=== PATIENT | male | born 1990 | race Caucasian/White ===

== ENCOUNTER 2024-09-11 19:17 | Emergency (ER) | payer OTHER ==
[2024-09-11 19:49] LABS: Absolute Neutrophil Ct (ANC) 4.92 x10^3/uL (1.78-5.38); Basophil (Absolute #) 0.08 x10^3/uL (0.01-0.08); Eosinophil % 4.7 % (0.8-7.0); Eosinophil (Absolute #) 0.38 x10^3/uL (0.04-0.54); Hematocrit 36.9 % (40.1-51.0); Hemoglobin 11.9 g/dL (13.7-17.5); IMMATURE GRAN # 0.03 x10^3u/L (0.001-0.031); IMMATURE GRAN % 0.4 % (0.001-0.429); Lymphocyte (Absolute #) 2.07 x10^3/uL (1.32-3.57); Lymphocytes % 25.7 % (21.8-53.1); Mean Cell Volume 83.5 fL (79.0-92.2); Mean Corpuscular Hemoglobin 26.9 pg (25.7-32.2); Mean Corpuscular Hgb Concent. 32.2 g/dL (32.3-36.5); Mean Platelet Volume 8.9 fL (9.4-12.4); Monocyte (Absolute #) 0.59 x10^3/uL (0.30-0.82); Monocytes % 7.3 % (5.3-12.2); Neutrophil % 60.9 % (34.0-67.9); Platelet Count 449 x10^3/uL (163-337); Red Blood Count 4.42 x10^6/uL (4.63-6.08); Red Cell Distribution Width 14.4 % (11.6-14.4); White Blood Count 8.1 x10^3/uL (4.23-9.07)
[2024-09-11] MEDS ORDERED: Zofran 4 MG/2 ML VIAL ONE (19:52)
[2024-09-11] MEDS ORDERED: Hydromorphone 1 mg/ml Injection ONE ×2 (19:53→21:48)
[2024-09-11] MEDS ORDERED: Sodium Chloride 0.9% 1000 ML 1,000 ML ONE (19:53)
[2024-09-11 19:54] VITALS: RESP 18; TEMP 97.8
--- NOTE | 2024-09-11 19:54 | ERPHSYRPT ---
- History of Present Illness Time Seen by Provider: 09/11/24 19:40 Historian: patient Exam Limitations: no limitations Physician History: This is a 34-year-old white male patient who is new to this town and has a history of Crohn's disease. He feels as though he is having a "flareup". He is not on any medications since he moved to town here. He has not seen a gastro enterologist and does not have a primary care provider. Patient has no known drug allergies and he is not on any medications. Patient states that 2 days ago the pain was in his left upper quadrant and is still present there. It is a sharp achiness. His typical Crohn's flareup pain is in the infraumbilical midline. He states it is now there as well. Patient has a ride home from work. He states he has had 2 episodes of small emesis. He is nauseated. He also passed some blood rectally. He denies chest pain. He denies shortness of breath. Timing/Duration: day(s) (2) Activities at Onset: none Quality: aching, sharpness Abdominal Pain Onset Location: LUQ, periumbilical Pain Radiation: no radiation (For umbilical midline) Severity of Pain-Max: moderate Severity of Pain-Current: moderate Modifying Factors: Improves With: vomiting (Twice, small amounts) Associated Symptoms: loss of appetite, nausea, vomiting, other (Small amount of blood passed rectally) Previous symptoms: same symptoms as today, no recent treatment Allergies/Adverse Reactions: No Known Drug Allergies Allergy (Unverified 09/11/24 19:23) Travel Risk - International Travel Have you traveled outside of the country in past 3 weeks: No - Emerging Infectious Disease Are you exhibiting symptoms associated with any current EIDs: No - Review of Systems Constitutional: No Symptoms Eyes: No Symptoms Ears, Nose, & Throat: No Symptoms Respiratory: No Symptoms Cardiac: No Symptoms Abdominal/Gastrointestinal: Abdominal Pain, Nausea, Vomiting, Hematochezia (Small amount), Appetite Changes Genitourinary Symptoms: No Symptoms Musculoskeletal: No Symptoms Skin: No Symptoms Neurological: No Symptoms Psychological: No Symptoms Endocrine: No Symptoms Hematologic/Lymphatic: No Symptoms Immunological/Allergic: No Symptoms All Other Systems: Reviewed and Negative - Past Medical History Pertinent Past Medical History: Yes - Past Surgical History Past Surgical History: Yes - Nursing Vital Signs Nursing Vital Signs: Initial Vital Signs Temperature 97.8 F 09/11/24 19:25 Pulse Rate 120 H 09/11/24 19:25 Respiratory Rate 18 09/11/24 19:25 Blood Pressure 133/81 09/11/24 19:25 O2 Sat by Pulse Oximetry 97 09/11/24 19:25 Pain Scale Pain Intensity 9 - Physical Exam General Appearance: no apparent distress, alert, anxiety Eye Exam: PERRL/EOMI, eyes nml inspection Ears, Nose, Throat Exam: normal ENT inspection, moist mucous membranes Neck Exam: normal inspection, non-tender, supple, full range of motion Respiratory Exam: normal breath sounds, lungs clear, airway intact, No chest tenderness, No respiratory distress Cardiovascular Exam: regular rate/rhythm, normal heart sounds, normal peripheral pulses Gastrointestinal/Abdomen Exam: soft, normal bowel sounds, tenderness (Left upper quadrant and infraumbilical midline to palpation), guarding (Left upper quadrant and in from Velcro midline to palpation), No rebound Rectal Exam: not done Back Exam: normal inspection, normal range of motion, No CVA tenderness, No vertebral tenderness Extremity Exam: normal inspection, normal range of motion, pelvis stable Neurologic Exam: alert, oriented x 3, cooperative, hobber II-XII nml as tested, normal mood/affect, nml cerebellar function, nml station & gait, sensation nml Skin Exam: normal color, warm, dry Lymphatic Exam: No adenopathy SpO2 Interpretation: normal O2 Delivery: Room Air - Course Nursing assessment & vital signs reviewed: Yes Ordered Tests: Active Orders 24 hr Category Date Time Status IV Insertion STAT Care 09/11/24 19:41 Active ABDOMEN AND PELVIS W/0 CONTRAS [CT] Stat Exams 09/11/24 19:41 Taken AMYLASE Stat Lab 09/11/24 19:25 Completed CBC W DIFF Stat Lab 09/11/24 19:25 Completed CMP Stat Lab 09/11/24 19:25 Completed LIPASE Stat Lab 09/11/24 19:25 Completed UA W/RFX UR CULTURE Stat Lab 09/11/24 20:50 Completed Medication Summary Discontinued Medications Generic Name Dose Route Start Last Admin Trade Name Freq PRN Reason Stop Dose Admin Methylprednisolone Sodium 0 mg 09/11/24 21:14 Succinate 125 mg/ Sterile IV 09/11/24 21:15 Water 2 ml STAT ONE Hydromorphone HCl 1 mg 09/11/24 19:41 09/11/24 20:04 Hydromorphone 1 Mg/1ml Inj IV 09/11/24 19:42 1 mg STAT ONE Administration Hydromorphone HCl Confirm 09/11/24 19:53 Hydromorphone 1 Mg/1ml Inj Administered 09/11/24 19:54 Dose 1 mg .ROUTE .STK-MED ONE Hydromorphone HCl 1 mg 09/11/24 21:14 Hydromorphone 1 Mg/1ml Inj IV 09/11/24 21:15 STAT ONE Sodium Chloride 1,000 mls @ 999 mls/hr 09/11/24 19:41 09/11/24 21:07 Sodium Chloride 0.9% 1000 Ml IV 09/11/24 20:41 Infused .Q1H1M STA Infusion Sodium Chloride Confirm 09/11/24 19:53 Sodium Chloride 0.9% 1000 Ml Administered 09/11/24 19:54 Dose 1,000 mls @ ud .ROUTE .STK-MED ONE Ondansetron HCl 4 mg 09/11/24 19:41 09/11/24 20:04 Ondansetron Hcl 4 Mg/2 Ml Vial IV 09/11/24 19:42 4 mg STAT ONE Administration Ondansetron HCl Confirm 09/11/24 19:52 Ondansetron Hcl 4 Mg/2 Ml Vial Administered 09/11/24 19:53 Dose 4 mg .ROUTE .STK-MED ONE Lab/Rad Data: Laboratory Result Diagrams 09/11/24 19:25 09/11/24 19:25 Laboratory Results 09/11/24 09/11/24 09/11/24 Range/Units 20:50 19:25 19:25 WBC 8.1 (4.23-9.07) x10^3/uL RBC 4.42 L (4.63-6.08) x10^6/uL Hgb 11.9 L (13.7-17.5) g/dL Hct 36.9 L (40.1-51.0) % MCV 83.5 (79.0-92.2) fL MCH 26.9 (25.7-32.2) pg MCHC 32.2 L (32.3-36.5) g/dL RDW 14.4 (11.6-14.4) % Plt Count 449 H (163-337) x10^3/uL MPV 8.9 L (9.4-12.4) fL Gran % 60.9 (34.0-67.9) % Immature Gran % (Auto) 0.4 (0.001-0.429) % Nucleat RBC Rel Count 0.0 (0.00-0.2) % Eos # (Auto) 0.38 (0.04-0.54) x10^3/uL Immature Gran # (Auto) 0.03 (0.001-0.031) x10^3u/L Absolute Lymphs (auto) 2.07 (1.32-3.57) x10^3/uL Absolute Monos (auto) 0.59 (0.30-0.82) x10^3/uL Absolute Nucleated RBC 0.00 (0.00-0.012) x10^3u/L Lymphocytes % 25.7 (21.8-53.1) % Monocytes % 7.3 (5.3-12.2) % Eosinophils % 4.7 (0.8-7.0) % Basophils % 1.0 (0.2-1.2) % Absolute Granulocytes 4.92 (1.78-5.38) x10^3/uL Basophils # 0.08 (0.01-0.08) x10^3/uL Sodium 139 (135-145) mmol/L Potassium 3.8 (3.5-5.1) mmol/L Chloride 106 (98-107) mmol/L Carbon Dioxide 24 (22-30) mmol/L Anion Gap 13.1 (5-15) MEQ/L BUN 13 (9-20) mg/dL Creatinine 0.88 (0.66-1.25) mg/dL Estimated GFR 115.7 ML/MIN Glucose 156 H (74-106) mg/dL Calcium 8.8 (8.4-10.2) mg/dL Total Bilirubin 0.20 (0.2-1.3) mg/dL AST 30 (17-59) U/L ALT 23 (0-50) U/L Alkaline Phosphatase 104 (38-126) U/L Serum Total Protein 7.3 (6.3-8.2) g/dL Albumin 4.2 (3.5-5.0) g/dL Amylase 67 (30-110) U/L Lipase 102 (23-300) U/L Urine Color Yellow (Yellow) Urine Appearance Clear (Clear) Urine pH 5.5 (4.6-8.0) Ur Specific [place] 1.025 (1.005-1.030) Urine Protein Negative (Negative) Urine Glucose (UA) Negative (Negative) mg/dL Urine Ketones Trace A (Negative) Urine Blood Negative (Negative) Urine Nitrite Negative (Negative) Urine Bilirubin Negative (Negative) Urine Urobilinogen 1.0 A (0.2) mg/dL Ur Leukocyte Esterase Negative (Negative) U Hyaline Cast (Auto) NONE SEEN (0-2) /LPF Urine Microscopic RBC 0-2 (0-5) /HPF Urine Microscopic WBC 0-2 (0-5) /HPF Ur Epithelial Cells None Seen (None Seen) /HPF Urine Bacteria None Seen (None Seen) /HPF Urine Culture Reflexed NO (NO) - Progress Progress: improved, pain not gone completely Progress Note: 09/11/24 19:52 My medical decision making of the assignment of moderate complexity to this patient's medical issue today is based on review of the patient's past medical history, review of the patient's medication list, reviewed patient drug allergy list, history present illness and physical findings on examination. The workup in this patient includes placement of intravenous line, infusion of normal saline solution, infusion of Zofran intravenously, infusion of Dilaudid intravenously, CBC, CMP, amylase, lipase, urinalysis, CT scan of the abdomen pelvis without contrast. Differential diagnosis includes was not limited to pancreatitis, colitis, diverticulitis, Crohn's disease exacerbation/flareup 09/11/24 21:15 I interpreted the patient's laboratory data results. Based on the laboratory data results, there are no acute, emergent medical issues. The CT scan of the abdomen pelvis without contrast was interpreted by the radiologist and I reviewed the impression. Impression states mild colitis descending colon without complications. Remaining CT scan of the abdomen pelvis is negative. Counseled pt/family regarding: lab results, diagnosis, need for follow-up, rad results Medical Desision Making - Diagnostic Testing Diagnostic test were ordered, analyzed, and reviewed by me: Yes Radiological Interpretation: Reviewed by me, Teleradiologist Report - Risk of complications The pt has a mod risk of morbidity or mortality based on: Need for prescription drug management - Departure Departure Disposition: Home Clinical Impression: Colitis Condition: Stable Critical Care Time: No Additional Instructions: Drink plenty of clear liquids. Do not advance your diet until you have no abdominal pain then advance your diet slowly. Avoid fatty greasy spicy foods. Take your antibiotics as prescribed. Call your primary care provider and/or caustic purification operator tomorrow morning, 09/12/2024, to make arrangements for follow-up appointment to be seen in the next 5 to 7 days. Prescriptions: Hydrocodone/APAP 5/325 [[place] 5/325 mg] 1 each PO Q8H PRN PRN #6 tablet MDD 3 PRN Reason: Pain Ciprofloxacin [Cipro 500 MG] 500 mg PO BID #14 tablet Metronidazole 500 mg [Flagyl 500 MG] 500 mg PO TID #21 tablet
[2024-09-11 20:02] LABS: ALBUMIN 4.2 g/dL (3.5-5.0); ANION GAP 13.1 MEQ/L (5-15); BILIRUBIN,TOTAL 0.2 mg/dL (0.2-1.3); Calcium 8.8 mg/dL (8.4-10.2); Creatinine 1 0.88 mg/dL (0.66-1.25); EST GLOMERULAR FILTRATION RATE 115.7 ML/MIN; Potassium 3.8 mmol/L (3.5-5.1); Total Protein 7.3 g/dL (6.3-8.2)
[2024-09-11] MEDS: Zofran 4 MG/2 ML VIAL IV ONE (20:04)
[2024-09-11] MEDS: Sodium Chloride 0.9% 1000 ML 1,000 ML IV STA (20:04)
[2024-09-11] MEDS: Hydromorphone 1 mg/ml Injection IV ONE ×2 (20:04→21:54)
[2024-09-11 21:06] LABS: Appearance Clear (Clear); Bacteria None Seen /HPF (None Seen); Bilirubin Negative (Negative); Blood Negative (Negative); Epithelial Cells None Seen /HPF (None Seen); Glucose, Urine Negative (Negative); Hyaline Casts NONE SEEN /LPF (0-2); Ketones Trace (Negative); Leukocyte Esterase Negative (Negative); Nitrite Negative (Negative); Ph 5.5 (4.6-8.0); Protein,Urine Dip Negative (Negative); RBC 0-2 /HPF (0-5); Specific Gravity 1.025 (1.005-1.030); WBC 0-2 /HPF (0-5)
[2024-09-11] MEDS ORDERED: solu-MEDROL ONE (21:48)
[2024-09-11] MEDS ORDERED: Levofloxacin 500 MG Tablet ONE (21:48)
[2024-09-11] MEDS ORDERED: Sterile H2O 10 ml IJ ONE (21:48)
[2024-09-11] MEDS ORDERED: NORCO 5/325 MG ONE (21:49)
[2024-09-11] MEDS ORDERED: Flagyl 500 MG ONE (21:49)
[2024-09-11] MEDS: Levofloxacin 500 MG Tablet PO ONE (21:54)
[2024-09-11] MEDS: solu-MEDROL 125 MG, Sterile H2O 10 ml 2 ML IV ONE (21:54)
[2024-09-11] MEDS: Flagyl 500 MG PO ONE (21:54)
[2024-09-11] MEDS: NORCO 5/325 MG PO ONE (21:54)
[2024-09-11 22:46] VITALS: BP 119/78; PULSE 93; O2SAT 97
--- NOTE | 2024-09-12 08:15 | XRAY ---
Indication: Left upper quadrant/infraumbilical abdominal pain. History Crohn's disease. Multiple contiguous axial images obtained through the abdomen and pelvis without contrast. Comparison: None Lung bases clear. Heart not enlarged. Stomach distended with food/fluid. Noncontrasted stomach and bowel loops appear nonobstructed. Normal appendix. Descending colon demonstrates mild circumferential wall thickening with pericolonic stranding favoring colitis. No free fluid/air. Remaining liver, gallbladder, pancreas, spleen, adrenal glands, kidneys, ureters, bladder, and aorta are unremarkable for noncontrast exam. Osseous structures intact. Impression: Mild non-complicated descending colitis.
== END 2024-09-11 22:47 | disposition home or self-care (01) ==
LOC: ED 19:17
DX: K52.9 Noninfective gastroenteritis and colitis, unspecified (principal); R10.12 Left upper quadrant pain; R10.33 Periumbilical pain; R11.2 Nausea with vomiting, unspecified; K92.1 Melena
CPT/HCPCS: 36415; 74176; 80053; 81001; 82150; 83690; 85025; 96360; 96374; 96375; 96376; 99284; J1171; J2405; J2919; A9270-GY

== ENCOUNTER 2024-10-05 17:56 | Emergency (ER) | payer OTHER ==
[2024-10-05 19:13] VITALS: TEMP 97.7
[2024-10-05] MEDS ORDERED: MORPHINE SULFATE 4 MG INJ ONE (19:41)
[2024-10-05] MEDS ORDERED: Sodium Chloride 0.9% 1000 ML 1,000 ML ONE (19:41)
[2024-10-05] MEDS ORDERED: Sterile H2O 10 ml IJ ONE (19:41)
[2024-10-05] MEDS ORDERED: Zofran 4 MG/2 ML VIAL ONE (19:41)
[2024-10-05] MEDS ORDERED: solu-MEDROL ONE (19:41)
[2024-10-05] MEDS: Sodium Chloride 0.9% 1000 ML 1,000 ML IV STA (19:43)
[2024-10-05] MEDS: solu-MEDROL 125 MG, Sterile H2O 10 ml 2 ML IV ONE (19:43)
[2024-10-05] MEDS: MORPHINE SULFATE 4 MG INJ IV ONE (19:43)
[2024-10-05] MEDS: Zofran 4 MG/2 ML VIAL IV ONE (19:43)
[2024-10-05 20:00] LABS: Hematocrit 37.5 % (40.1-51.0); Hemoglobin 11.7 g/dL (13.7-17.5); Mean Cell Volume 84.1 fL (79.0-92.2); Mean Corpuscular Hemoglobin 26.2 pg (25.7-32.2); Mean Corpuscular Hgb Concent. 31.2 g/dL (32.3-36.5); Mean Platelet Volume 8.8 fL (9.4-12.4); Platelet Count 416 x10^3/uL (163-337); Red Blood Count 4.46 x10^6/uL (4.63-6.08); Red Cell Distribution Width 14.9 % (11.6-14.4); White Blood Count 9.9 x10^3/uL (4.23-9.07)
[2024-10-05 20:04] LABS: Appearance Clear (Clear); Bacteria None Seen /HPF (None Seen); Bilirubin Negative (Negative); Blood Negative (Negative); Epithelial Cells None Seen /HPF (None Seen); Glucose, Urine Negative (Negative); Hyaline Casts NONE SEEN /LPF (0-2); Ketones Negative (Negative); Leukocyte Esterase Negative (Negative); Nitrite Negative (Negative); Ph 6.5 (4.6-8.0); Protein,Urine Dip Negative (Negative); RBC 0-2 /HPF (0-5); Specific Gravity <=1.005 (1.005-1.030); Urobilinogen 0.2 mg/dL (0.2); WBC 0-2 /HPF (0-5)
[2024-10-05 20:14] LABS: ALBUMIN 4.4 g/dL (3.5-5.0); ANION GAP 10.8 MEQ/L (5-15); BILIRUBIN,TOTAL 0.2 mg/dL (0.2-1.3); Calcium 9.3 mg/dL (8.4-10.2); Creatinine 1 0.85 mg/dL (0.66-1.25); EST GLOMERULAR FILTRATION RATE 116.9 ML/MIN; Potassium 3.9 mmol/L (3.5-5.1); Total Protein 7.8 g/dL (6.3-8.2)
[2024-10-05 20:16] VITALS: O2SAT 97
--- NOTE | 2024-10-05 20:30 | ERPHSYRPT ---
- History of Present Illness Time Seen by Provider: 10/05/24 18:33 Historian: patient Exam Limitations: no limitations Patient Subjective Stated Complaint: c/o abdominal pain Triage Nursing Assessment: patient brought self to ED with c/o abdominal pain that has been going on for the past 2-3 days. patient states he has had some diarrhea and nausea, denies vomiting, history Crohn's disease. bowel sounds present in all 4 quads, tenderness with palpation, rates pain 9/10 in bilat. lower quads. last BM and oral intake was today, gait steady, vitals wnl, skin w/n/d, patient doesn't appear to be in any distress at this time. Physician History: 34-year-old male with history of Crohn's disease not on any medications for quite some time presented in the ER with complaining of increasing pain in the lower abdomen along with loose stool without hematochezia. Patient reports usually his pain is more on the left side but today having pain on both lower quadrants and actually more on the right lower quadrant than the left. No fever or chills reported. No vomiting. Pain is moderate to severe sharp and gradually worsening for the last 2 days. Allergies/Adverse Reactions: No Known Drug Allergies Allergy (Verified 10/05/24 19:13) Hx Tetanus, Diphtheria Vaccination/Date Given: Yes Hx Influenza Vaccination/Date Given: No Hx Pneumococcal Vaccination/Date Given: No Travel Risk - International Travel Have you traveled outside of the country in past 3 weeks: No - Emerging Infectious Disease Are you exhibiting symptoms associated with any current EIDs: Yes Symptoms: Abdominal Pain, Diarrhea - Review of Systems Constitutional: No Symptoms Ears, Nose, & Throat: No Symptoms Respiratory: No Symptoms Cardiac: No Symptoms Abdominal/Gastrointestinal: Abdominal Pain, Diarrhea Genitourinary Symptoms: No Symptoms Musculoskeletal: No Symptoms Skin: No Symptoms Neurological: No Symptoms Endocrine: No Symptoms - Past Medical History Pertinent Past Medical History: Yes Neurological History: No Pertinent History ENT History: No Pertinent History Cardiac History: No Pertinent History Respiratory History: No Pertinent History Endocrine Medical History: No Pertinent History Musculoskeletal History: No Pertinent History GI Medical History: Crohns Disease History: No Pertinent History Psycho-Social History: No Pertinent History Male Reproductive Disorders: No Pertinent History Other Medical History: intestinal fistula - Past Surgical History Past Surgical History: Yes Gastrointestinal: Other Other Surgical History: intestinal fistula repair - Social History Smoking Status: Current every day smoker How long have you smoked: 16 Exposure to second hand smoke: Yes Drug Use: none - Social Determinants of Health Will the patient participate in the screening: Yes Do you worry about a steady place to live?: No Do you have any problems with any of the following?: No known problems In the past 12 months,have you had to go without utilities?: No Transportation Issues: No Has anyone in your support network made you feel unsafe?: No Have you or anyone in your house had to go without enough: No - Nursing Vital Signs Nursing Vital Signs: Initial Vital Signs Temperature 97.7 F 10/05/24 19:03 Pulse Rate 90 10/05/24 19:03 Respiratory Rate 19 10/05/24 19:03 Blood Pressure 140/85 10/05/24 19:03 O2 Sat by Pulse Oximetry 99 10/05/24 19:03 Pain Scale Pain Intensity 8 - Physical Exam General Appearance: no apparent distress Ears, Nose, Throat Exam: normal ENT inspection Neck Exam: normal inspection, full range of motion Respiratory Exam: normal breath sounds, lungs clear Cardiovascular Exam: regular rate/rhythm, normal heart sounds Gastrointestinal/Abdomen Exam: soft, normal bowel sounds, tenderness, guarding (Bilateral lower quadrant) Back Exam: normal inspection, normal range of motion Extremity Exam: normal inspection, normal range of motion Neurologic Exam: alert, oriented x 3, cooperative Skin Exam: normal color SpO2 Interpretation: normal SpO2: 97 O2 Delivery: Room Air Ordered Tests: Active Orders 24 hr Category Date Time Status IV Insertion STAT Care 10/05/24 19:32 Active ABDOMEN AND PELVIS W/0 CONTRAS [CT] Stat Exams 10/05/24 19:59 Taken CBC Stat Lab 10/05/24 19:40 Completed CMP Stat Lab 10/05/24 19:40 Completed LIPASE Stat Lab 10/05/24 19:40 Completed UA W/RFX UR CULTURE Stat Lab 10/05/24 19:32 Completed Medication Summary Generic Name Dose Route Start Last Admin Trade Name Freq PRN Reason Stop Dose Admin Hydrocodone Bitart/Acetaminophen 2 tab 10/05/24 21:38 Hydrocodone/Apap 5/325 1 Tab Tablet PO 10/05/24 21:39 SENT HOME W/ PATIENT ONE Ciprofloxacin 500 mg 10/05/24 22:00 Ciprofloxacin 500 Mg Tablet PO 11/04/24 21:59 BID VASILIY Metronidazole 500 mg 10/05/24 21:39 Metronidazole 500 Mg Tablet PO 10/05/24 21:40 STAT ONE Oxycodone/Acetaminophen 1 tab 10/05/24 21:38 Oxycodone Hcl/Apap 5 Mg/325 Mg Tablet PO 10/05/24 21:39 STAT STA Discontinued Medications Generic Name Dose Route Start Last Admin Trade Name Justin PRN Reason Stop Dose Admin Methylprednisolone Sodium 0 mg 10/05/24 19:36 10/05/24 19:43 Succinate 125 mg/ Sterile IV 10/05/24 19:37 125 mg Water 2 ml STAT ONE Administration Sodium Chloride 1,000 mls @ 999 mls/hr 10/05/24 19:36 10/05/24 20:47 Sodium Chloride 0.9% 1000 Ml IV 10/05/24 20:36 Infused .Q1H1M STA Infusion Sodium Chloride Confirm 10/05/24 19:41 Sodium Chloride 0.9% 1000 Ml Administered 10/05/24 19:42 Dose 1,000 mls @ ud .ROUTE .STK-MED ONE Methylprednisolone Sodium Succinate Confirm 10/05/24 19:41 Methylprednis Sod Succ 125 Mg/2 Ml Vial Administered 10/05/24 19:42 Dose 125 mg .ROUTE .STK-MED ONE Morphine Sulfate 4 mg 10/05/24 19:36 10/05/24 19:43 Morphine Sulfate 4 Mg/Ml Injection IV 10/05/24 19:37 4 mg STAT ONE Administration Morphine Sulfate Confirm 10/05/24 19:41 Morphine Sulfate 4 Mg/Ml Injection Administered 10/05/24 19:42 Dose 4 mg .ROUTE .STK-MED ONE Ondansetron HCl 4 mg 10/05/24 19:36 10/05/24 19:43 Ondansetron Hcl 4 Mg/2 Ml Vial IV 10/05/24 19:37 4 mg STAT ONE Administration Ondansetron HCl Confirm 10/05/24 19:41 Ondansetron Hcl 4 Mg/2 Ml Vial Administered 10/05/24 19:42 Dose 4 mg .ROUTE .STK-MED ONE Sterile Water Confirm 10/05/24 19:41 Water For Injection,Sterile 10 Ml Vial Administered 10/05/24 19:42 Dose 10 ml IJ .STK-MED ONE Lab/Rad Data: Laboratory Result Diagrams 10/05/24 19:40 10/05/24 19:40 Laboratory Results 10/05/24 10/05/24 10/05/24 Range/Units 19:40 19:40 19:32 WBC 9.9 H (4.23-9.07) x10^3/uL RBC 4.46 L (4.63-6.08) x10^6/uL Hgb 11.7 L (13.7-17.5) g/dL Hct 37.5 L (40.1-51.0) % MCV 84.1 (79.0-92.2) fL MCH 26.2 (25.7-32.2) pg MCHC 31.2 L (32.3-36.5) g/dL RDW 14.9 H (11.6-14.4) % Plt Count 416 H (163-337) x10^3/uL MPV 8.8 L (9.4-12.4) fL Sodium 138 (135-145) mmol/L Potassium 3.9 (3.5-5.1) mmol/L Chloride 104 (98-107) mmol/L Carbon Dioxide 27 (22-30) mmol/L Anion Gap 10.8 (5-15) MEQ/L BUN 10 (9-20) mg/dL Creatinine 0.85 (0.66-1.25) mg/dL Estimated GFR 116.9 ML/MIN Glucose 92 (74-106) mg/dL Calcium 9.3 (8.4-10.2) mg/dL Total Bilirubin 0.20 (0.2-1.3) mg/dL AST 32 (17-59) U/L ALT 17 (0-50) U/L Alkaline Phosphatase 98 (38-126) U/L Serum Total Protein 7.8 (6.3-8.2) g/dL Albumin 4.4 (3.5-5.0) g/dL Lipase 60 (23-300) U/L Urine Color Yellow (Yellow) Urine Appearance Clear (Clear) Urine pH 6.5 (4.6-8.0) Ur Specific [place] <=1.005 (1.005-1.030) Urine Protein Negative (Negative) Urine Glucose (UA) Negative (Negative) mg/dL Urine Ketones Negative (Negative) Urine Blood Negative (Negative) Urine Nitrite Negative (Negative) Urine Bilirubin Negative (Negative) Urine Urobilinogen 0.2 (0.2) mg/dL Ur Leukocyte Esterase Negative (Negative) U Hyaline Cast (Auto) NONE SEEN (0-2) /LPF Urine Microscopic RBC 0-2 (0-5) /HPF Urine Microscopic WBC 0-2 (0-5) /HPF Ur Epithelial Cells None Seen (None Seen) /HPF Urine Bacteria None Seen (None Seen) /HPF Urine Culture Reflexed NO (NO) - Progress Progress: improved, pain not gone completely Progress Note: 10/05/24 21:41 34-year-old is evaluated in the ER for lower abdominal pain with diarrhea. Patient pain was more on the right side. Is given symptomatic treatment, on reevaluation pain is better but not completely resolved, Workup showed normal white count, fairly unremarkable chemistries and no UTI. CT abdomen pelvis is consistent with descending colitis which was there before per preliminary report, official final report is pending, I will treat him with Cipro and Flagyl along with Medrol Dosepak and outpatient follow-up with primary care and GI as recommended. Discussed results of workup with patient, plan of discharge and outpatient follow-up which she seems understanding. Stable for discharge. 10/05/24 21:43 Counseled pt/family regarding: lab results, diagnosis, need for follow-up, rad results Medical Desision Making - Diagnostic Testing Diagnostic test were ordered, analyzed, and reviewed by me: Yes Radiological Interpretation: Reviewed by me, Teleradiologist Report - Risk of complications The pt has a mod risk of morbidity or mortality based on: Need for prescription drug management - Departure Departure Disposition: Home Clinical Impression: Acute colitis Condition: Stable Critical Care Time: No Referrals: DOCTOR,NO FAMILY [Primary Care Provider] - Follow up with PCP 1 day Instructions: Crohn disease in adults Additional Instructions: Take Tylenol/ibuprofen as needed. Follow-up with primary care for reevaluation and may need referral for GI for further evaluation. Return to ER for any worsening. Prescriptions: Ciprofloxacin [Cipro 500 MG] 500 mg PO BID #14 tablet Metronidazole 500 mg [Flagyl 500 MG] 500 mg PO TID #21 tablet Methylprednisolone Packet [Medrol Dosepack] 4 mg PO UD #1 packet
[2024-10-05 21:05] VITALS: BP 121/74; PULSE 79; RESP 18
[2024-10-05] MEDS ORDERED: PERCOCET TABLET 5/325MG ONE (21:44)
[2024-10-05] MEDS ORDERED: Flagyl 500 MG ONE (21:44)
[2024-10-05] MEDS ORDERED: Cipro 500 MG ONE (21:44)
[2024-10-05] MEDS ORDERED: NORCO 5/325 MG ONE (21:44)
[2024-10-05] MEDS: Flagyl 500 MG PO ONE (21:45)
[2024-10-05] MEDS: PERCOCET TABLET 5/325MG PO STA (21:45)
[2024-10-05] MEDS: Cipro 500 MG PO SCH (21:46)
[2024-10-05] MEDS: NORCO 5/325 MG PO ONE (21:46)
--- NOTE | 2024-10-06 09:20 | XRAY ---
Indication: Lower abdominal pain. History Crohn's disease. Multiple contiguous axial images obtained through the abdomen and pelvis without contrast. Comparison: September 11, 2024 Lung bases remain clear. Heart not enlarged. Noncontrasted stomach and bowel loops appear nonobstructed again with normal appendix. Descending colon again demonstrates mild circumferential wall thickening with minimal pericolonic stranding favoring colitis no free fluid/air. Remaining liver, gallbladder, pancreas, spleen, adrenal glands, kidneys, ureters, bladder, and aorta are again unremarkable for noncontrast exam. Osseous structures intact. Impression: 1. Again descending colonic circumferential bowel wall thickening with stranding favoring colitis in this patient with history of Crohn's disease. 2. Remaining CT abdomen/pelvis without contrast exam is negative.
== END 2024-10-05 22:01 | disposition home or self-care (01) ==
LOC: ED 17:56
DX: K52.9 Noninfective gastroenteritis and colitis, unspecified (principal); R10.31 Right lower quadrant pain; R10.32 Left lower quadrant pain; Z79.52 Long term (current) use of systemic steroids; Z79.899 Other long term (current) drug therapy; Z72.0 Tobacco use
CPT/HCPCS: 36415; 74176; 80053; 81001; 83690; 85027; 96360; 96374; 96375; 99284; 99285; J2270; J2405; J2919; A9270-GY

== ENCOUNTER 2024-12-09 20:31 | Emergency (ER) | payer OTHER ==
[2024-12-09 20:52] VITALS: TEMP 98.9
--- NOTE | 2024-12-09 21:17 | ERPHSYRPT ---
- History of Present Illness Source: patient Exam Limitations: no limitations Patient Subjective Stated Complaint: PT. STATES, "MY BACK IS KILLING ME UP UNDER MY LEFT SHOULDER BLADE AND ACROSS MY LOWER BACK. I CAN'T GET COMFORTABLE, I CAN'T SLEEP, IT TAKES MY BREATHE AWAY IT HURTS SO BAD. I WAS DOING YARD WORK A COUPLE DAYS AGO AND I THOUGHT I MAY HAVE TWINGED IT BUT IT IS SO MUCH WORSE NOW." Triage Nursing Assessment: AMB. TO ROOM WITHOUT DIFFICULTY, A&OX3, PLEASANT COOPERATIVE, APPEARS TO BE IN PAIN WITH MOVEMENT, RESP EVEN UNLABORED PT. WINCES WITH DEEP BREATHING, SKIN P/W/D, Physician History: Patient has some pain in His left subscapularis muscle. Movement of the arms and shoulders makes it worse. He says it hurts pretty much continuously but then when he does suit certain maneuvers such as moving his arm and shoulder or taking a deep breath or coughing it hurts a lot more. He does not have any neurological deficits or anything like that. There is no been no trauma that he can think of that would have caused this.He does not have any midline tenderness. He does not have any numbness tingling or weakness or neurological deficits.He has not had problems like this before.He says that at times his left lower back hurts but nothing like what is going on in his left subscapularis area.He does not have any shortness of breath or chest pain. Allergies/Adverse Reactions: No Known Drug Allergies Allergy (Verified 10/05/24 19:13) Hx Tetanus, Diphtheria Vaccination/Date Given: Yes Hx Influenza Vaccination/Date Given: No Hx Pneumococcal Vaccination/Date Given: No Immunizations Up to Date: No Travel Risk - International Travel Have you traveled outside of the country in past 3 weeks: No - Emerging Infectious Disease Are you exhibiting symptoms associated with any current EIDs: No Symptoms: Abdominal Pain, Diarrhea - Review of Systems Constitutional: No Symptoms Eyes: No Symptoms Respiratory: No Symptoms Cardiac: No Symptoms Abdominal/Gastrointestinal: No Symptoms Genitourinary Symptoms: Flank Pain Skin: No Symptoms Neurological: No Symptoms All Other Systems: Reviewed and Negative - Past Medical History Pertinent Past Medical History: Yes Neurological History: No Pertinent History ENT History: No Pertinent History Cardiac History: No Pertinent History Respiratory History: No Pertinent History Endocrine Medical History: No Pertinent History Musculoskeletal History: No Pertinent History GI Medical History: Crohns Disease History: No Pertinent History Psycho-Social History: No Pertinent History Male Reproductive Disorders: No Pertinent History Other Medical History: intestinal fistula - Past Surgical History Past Surgical History: Yes Neuro Surgical History: No Pertinent History Cardiac: No Pertinent History Respiratory: No Pertinent History Gastrointestinal: Other Genitourinary: No Pertinent History Musculoskeletal: No Pertinent History Male Surgical History: No Pertinent History Other Surgical History: intestinal fistula repair - Social History Smoking Status: Current every day smoker How long have you smoked: 16 Exposure to second hand smoke: Yes Drug Use: none - Social Determinants of Health Will the patient participate in the screening: Declined to provide - Nursing Vital Signs Nursing Vital Signs: Initial Vital Signs Temperature 98.9 F 12/09/24 20:38 Pulse Rate 92 H 12/09/24 20:38 Respiratory Rate 18 12/09/24 20:38 Blood Pressure 125/81 12/09/24 20:38 O2 Sat by Pulse Oximetry 99 12/09/24 20:38 Pain Scale Pain Intensity 10 - Physical Exam General Appearance: no apparent distress Eye Exam: PERRL/EOMI Respiratory Exam: normal breath sounds, lungs clear, No chest tenderness, No respiratory distress Cardiovascular Exam: regular rate/rhythm, normal heart sounds Gastrointestinal Exam: soft, normal bowel sounds, No tenderness, No distention Back Exam: other (Tenderness in the left subscapularis muscle with palpation. He says that that reproduces the pain that he feels.) Extremity Exam: normal inspection, normal range of motion Neurologic Exam: alert, oriented x 3, No cooperative Skin Exam: normal color SpO2 Interpretation: normal SpO2: 99 - Course Nursing assessment & vital signs reviewed: Yes - Progress Progress: unchanged Progress Note: Patient was stable throughout stay. This seems to be clearly musculoskeletal pain. I am going to start him on Naprosyn, [place] and Flexeril. He is to follow-up with his primary care doctor because he will likely need a physical therapy referral. 12/09/24 21:21 - Departure Departure Disposition: Home Clinical Impression: Spasm of thoracic back muscle Condition: Stable Critical Care Time: No Referrals: DOCTOR,NO FAMILY [Primary Care Provider] - Follow up/PCP as directed Instructions: Muscle spasm - ED discharge instructions
[2024-12-09] MEDS ORDERED: Cyclobenzaprine 10 MG ONE (21:30)
[2024-12-09] MEDS ORDERED: MOTRIN 600 MG ONE (21:30)
[2024-12-09] MEDS ORDERED: NORCO 5/325 MG ONE (21:30)
[2024-12-09] MEDS: Cyclobenzaprine 10 MG PO ONE (21:32)
[2024-12-09] MEDS: MOTRIN 600 MG PO ONE (21:33)
[2024-12-09] MEDS: NORCO 5/325 MG PO ONE (21:34)
[2024-12-09 22:31] VITALS: BP 128/84; PULSE 87; RESP 16; O2SAT 98
== END 2024-12-09 22:15 | disposition home or self-care (01) ==
LOC: ED 20:31
DX: M62.830 Muscle spasm of back (principal); Z79.891 Long term (current) use of opiate analgesic; Z79.899 Other long term (current) drug therapy; Z72.0 Tobacco use
CPT/HCPCS: 99283; A9270-GY

== ENCOUNTER 2024-12-30 18:51 | Emergency (ER) | payer OTHER ==
[2024-12-30 19:16] VITALS: TEMP 99.2
--- NOTE | 2024-12-30 19:33 | ERPHSYRPT ---
- History of Present Illness Source: patient Exam Limitations: no limitations Patient Subjective Stated Complaint: Pain in the mid upper left back, had this approx 3 weeks ago and it feels like a spasm Triage Nursing Assessment: Pt was brought to the ER by his brother, tachycardic, hypertensive, rates pain as 9-10/10, pulses normal, skin n/w/d, pain when he takes a deep breath, doesn't have any other issues Physician History: Patient has pain is in his left subscapularis muscle. He is had it before I seen him for it before. We treated him and he got better for about 2 weeks. The pain came back again. He has an appointment set up with his primary doctor for follow-up its on the of this month. He is going to request physical therapy referral at that time.It is the same as his last visit. I reviewed that visit note. Movement makes the pain worse ice seems to make it better. The pain is described as cramping and spasming. Allergies/Adverse Reactions: No Known Drug Allergies Allergy (Verified 12/30/24 19:16) Home Medications: No Reportable Medications [No Reported Medications] 12/30/24 [History] Hx Tetanus, Diphtheria Vaccination/Date Given: Yes Hx Influenza Vaccination/Date Given: No Hx Pneumococcal Vaccination/Date Given: No Travel Risk - International Travel Have you traveled outside of the country in past 3 weeks: No - Emerging Infectious Disease Are you exhibiting symptoms associated with any current EIDs: No Symptoms: Abdominal Pain, Diarrhea - Review of Systems Constitutional: No Symptoms Eyes: No Symptoms Skin: No Symptoms Neurological: No Symptoms Psychological: No Symptoms All Other Systems: Reviewed and Negative - Past Medical History Pertinent Past Medical History: Yes Neurological History: No Pertinent History ENT History: No Pertinent History Cardiac History: No Pertinent History Respiratory History: No Pertinent History Endocrine Medical History: No Pertinent History Musculoskeletal History: No Pertinent History GI Medical History: Crohns Disease History: No Pertinent History Psycho-Social History: No Pertinent History Male Reproductive Disorders: No Pertinent History Other Medical History: intestinal fistula - Past Surgical History Past Surgical History: Yes Neuro Surgical History: No Pertinent History Cardiac: No Pertinent History Respiratory: No Pertinent History Gastrointestinal: Other Genitourinary: No Pertinent History Musculoskeletal: No Pertinent History Male Surgical History: No Pertinent History Other Surgical History: intestinal fistula repair - Social History Smoking Status: Current every day smoker How long have you smoked: 16 Exposure to second hand smoke: Yes Drug Use: none - Social Determinants of Health Will the patient participate in the screening: Yes Do you worry about a steady place to live?: No Do you have any problems with any of the following?: No known problems In the past 12 months,have you had to go without utilities?: No Transportation Issues: No Has anyone in your support network made you feel unsafe?: No Have you or anyone in your house had to go w/o enough food: No - Nursing Vital Signs Nursing Vital Signs: Initial Vital Signs Temperature 99.2 F 12/30/24 19:11 Pulse Rate 126 H 12/30/24 19:11 Blood Pressure 132/103 12/30/24 19:11 O2 Sat by Pulse Oximetry 97 12/30/24 19:11 Pain Scale Pain Intensity [Left Upper 9 Medial Back] Pain Intensity 10 - Physical Exam General Appearance: no apparent distress Respiratory Exam: normal breath sounds, chest tenderness, lungs clear Cardiovascular Exam: normal heart sounds, tachycardia Gastrointestinal Exam: soft, normal bowel sounds, No tenderness Neurologic Exam: alert, oriented x 3 Skin Exam: normal color, warm SpO2: 97 Ordered Tests: Active Orders 24 hr Category Date Time Status CHEST 1 VIEW (PORTABLE) Stat Exams 12/30/24 19:34 Taken CBC W DIFF Stat Lab 12/30/24 19:52 Completed CMP Stat Lab 12/30/24 19:52 Completed D-DIMER QUANTITATIVE Stat Lab 12/30/24 19:52 Completed Medication Summary Discontinued Medications Generic Name Dose Route Start Last Admin Trade Name Juan Manuelq PRN Reason Stop Dose Admin Hydrocodone Bitart/Acetaminophen 1 tab 12/30/24 19:35 12/30/24 19:41 Hydrocodone/Apap 5/325 1 Tab Tablet PO 12/30/24 19:36 1 tab STAT ONE Administration Hydrocodone Bitart/Acetaminophen Confirm 12/30/24 19:40 Hydrocodone/Apap 5/325 1 Tab Tablet Administered 12/30/24 19:41 Dose 1 tab .ROUTE .STK-MED ONE Cyclobenzaprine HCl 10 mg 12/30/24 19:35 12/30/24 19:42 Cyclobenzaprine Hcl 10 Mg Tablet PO 12/30/24 19:36 10 mg STAT ONE Administration Cyclobenzaprine HCl Confirm 12/30/24 19:40 Cyclobenzaprine Hcl 10 Mg Tablet Administered 12/30/24 19:41 Dose 10 mg .ROUTE .STK-MED ONE Lab/Rad Data: Laboratory Result Diagrams 12/30/24 19:52 12/30/24 19:52 Laboratory Results 12/30/24 12/30/24 12/30/24 Range/Units 19:52 19:52 19:52 WBC 9.8 H (4.23-9.07) x10^3/uL RBC 4.48 L (4.63-6.08) x10^6/uL Hgb 12.0 L (13.7-17.5) g/dL Hct 37.9 L (40.1-51.0) % MCV 84.6 (79.0-92.2) fL MCH 26.8 (25.7-32.2) pg MCHC 31.7 L (32.3-36.5) g/dL RDW 13.2 (11.6-14.4) % Plt Count 462 H (163-337) x10^3/uL MPV 8.6 L (9.4-12.4) fL Gran % 64.2 (34.0-67.9) % Immature Gran % (Auto) 0.3 (0.001-0.429) % Nucleat RBC Rel Count 0.0 (0.00-0.2) % Eos # (Auto) 0.55 H (0.04-0.54) x10^3/uL Immature Gran # (Auto) 0.03 (0.001-0.031) x10^3u/L Absolute Lymphs (auto) 2.02 (1.32-3.57) x10^3/uL Absolute Monos (auto) 0.84 H (0.30-0.82) x10^3/uL Absolute Nucleated RBC 0.00 (0.00-0.012) x10^3u/L Lymphocytes % 20.5 L (21.8-53.1) % Monocytes % 8.5 (5.3-12.2) % Eosinophils % 5.6 (0.8-7.0) % Basophils % 0.9 (0.2-1.2) % Absolute Granulocytes 6.31 H (1.78-5.38) x10^3/uL Basophils # 0.09 H (0.01-0.08) x10^3/uL D-Dimer 0.26 (0.0-0.50) mg/L Sodium 139 (135-145) mmol/L Potassium 4.1 (3.5-5.1) mmol/L Chloride 102 (98-107) mmol/L Carbon Dioxide 25 (22-30) mmol/L Anion Gap 15.3 H (5-15) MEQ/L BUN 14 (9-20) mg/dL Creatinine 0.91 (0.66-1.25) mg/dL Estimated GFR 113.4 ML/MIN Glucose 86 (74-106) mg/dL Calcium 9.0 (8.4-10.2) mg/dL Total Bilirubin 0.30 (0.2-1.3) mg/dL AST 27 (17-59) U/L ALT 20 (0-50) U/L Alkaline Phosphatase 95 (38-126) U/L Serum Total Protein 7.6 (6.3-8.2) g/dL Albumin 4.4 (3.5-5.0) g/dL - Progress Progress: improved Progress Note: Patient had tachycardia as well as some pleuritic type chest pain in his left back. His original complaint seem musculoskeletal but I thought we should go ahead and rule out a DVT/PE. His D-dimer was not elevated. He says that his heart rate always kind of fast. Last time he was here was around 95 he said it usually runs around 100-110. I gave him some [place] and Flexeril here. I want to send him home with a prescription for the same. 12/30/24 20:24 Medical Desision Making - Discussion of managment Agreed on:: Treatment plan - Departure Departure Disposition: Home Clinical Impression: Spasm of thoracic back muscle Condition: Stable Critical Care Time: No Referrals: JESUS YUAN MD [Primary Care Provider] - Follow up/PCP as directed Instructions: Muscle spasms (muscle cramps)
[2024-12-30] MEDS ORDERED: Cyclobenzaprine 10 MG ONE (19:40)
[2024-12-30] MEDS ORDERED: NORCO 5/325 MG ONE (19:40)
[2024-12-30] MEDS: NORCO 5/325 MG PO ONE (19:41)
[2024-12-30] MEDS: Cyclobenzaprine 10 MG PO ONE (19:42)
[2024-12-30 19:56] LABS: Absolute Neutrophil Ct (ANC) 6.31 x10^3/uL (1.78-5.38); BASOPHIL % 0.9 % (0.2-1.2); Basophil (Absolute #) 0.09 x10^3/uL (0.01-0.08); Eosinophil % 5.6 % (0.8-7.0); Eosinophil (Absolute #) 0.55 x10^3/uL (0.04-0.54); Hematocrit 37.9 % (40.1-51.0); IMMATURE GRAN # 0.03 x10^3u/L (0.001-0.031); IMMATURE GRAN % 0.3 % (0.001-0.429); Lymphocyte (Absolute #) 2.02 x10^3/uL (1.32-3.57); Lymphocytes % 20.5 % (21.8-53.1); Mean Cell Volume 84.6 fL (79.0-92.2); Mean Corpuscular Hemoglobin 26.8 pg (25.7-32.2); Mean Corpuscular Hgb Concent. 31.7 g/dL (32.3-36.5); Mean Platelet Volume 8.6 fL (9.4-12.4); Monocyte (Absolute #) 0.84 x10^3/uL (0.30-0.82); Monocytes % 8.5 % (5.3-12.2); Neutrophil % 64.2 % (34.0-67.9); Platelet Count 462 x10^3/uL (163-337); Red Blood Count 4.48 x10^6/uL (4.63-6.08); Red Cell Distribution Width 13.2 % (11.6-14.4); White Blood Count 9.8 x10^3/uL (4.23-9.07)
[2024-12-30 20:09] LABS: ALBUMIN 4.4 g/dL (3.5-5.0); ANION GAP 15.3 MEQ/L (5-15); BILIRUBIN,TOTAL 0.3 mg/dL (0.2-1.3); Creatinine 1 0.91 mg/dL (0.66-1.25); EST GLOMERULAR FILTRATION RATE 113.4 ML/MIN; Potassium 4.1 mmol/L (3.5-5.1); Total Protein 7.6 g/dL (6.3-8.2)
[2024-12-30 20:35] VITALS: BP 136/87; PULSE 113; RESP 18; O2SAT 96
--- NOTE | 2024-12-31 07:27 | XRAY ---
Indication: Posterior chest wall pain. Comparison: None Portable chest demonstrates normal heart and lungs with mild right hemidiaphragm elevation. Bony thorax intact. No acute findings.
== END 2024-12-30 20:36 | disposition home or self-care (01) ==
LOC: ED 18:51
DX: M62.830 Muscle spasm of back (principal); M54.6 Pain in thoracic spine; Z79.891 Long term (current) use of opiate analgesic; Z79.899 Other long term (current) drug therapy; Z72.0 Tobacco use
CPT/HCPCS: 36415; 71045; 80053; 85025; 85379; 99283; 99284; A9270-GY